=== PATIENT | male | born 1980 | race Caucasian/White ===

== ENCOUNTER 2019-12-01 18:30 | Emergency (ER) | payer MEDICARE, OTHER ==
[2019-12-01] MEDS ORDERED: Sodium Chloride 0.9% 1000 ML 1,000 ML IV STA (19:13)
[2019-12-01] MEDS ORDERED: Zofran 4 MG/2 ML VIAL IV ONE (19:13)
[2019-12-01] MEDS ORDERED: Sodium Chloride 0.9% 1000 ML 1,000 ML ONE (19:16)
[2019-12-01] MEDS ORDERED: Zofran 4 MG/2 ML VIAL ONE (19:16)
[2019-12-01 20:03] LABS: Absolute Neutrophil Ct (ANC) 6.24 (1.4-6.9); BASOPHIL % 0.2 % (0.0-0.4); Basophil (Absolute #) 0.02 (0-0.4); Eosinophil % 0.8 % (0.00-5.0); Eosinophil (Absolute #) 0.08 (0-0.5); Hematocrit 53.2 % (42-50); Hemoglobin 17.6 gm/dl (12.5-18.0); Lymphocyte (Absolute #) 2.27 (1.0-4.6); Lymphocytes % 23.6 % (24.0-44.0); Mean Cell Volume 90.5 fl (78-100); Mean Corpuscular Hemoglobin 29.9 pg (26-32); Mean Corpuscular Hgb Concent. 33.1 g/dl (32-36); Mean Platelet Volume 10.4 fl (7.5-11.0); Monocyte (Absolute #) 1.01 (0.0-1.3); Monocytes % 10.5 % (0.0-12.0); Neutrophil % 64.9 % (36.0-66.0); Platelet Count 265 K/mm3 (150-450); Red Blood Count 5.88 M/mm3 (4.1-5.6); Red Cell Distribution Width 13.2 % (11.5-14.0); White Blood Count 9.6 K/mm3 (4.0-10.5)
[2019-12-01 20:15] LABS: ALBUMIN 4.8 g/dL (3.5-5.0); ALKALINE PHOSPHATASE 82 U/L (38-126); ANION GAP 12.2 MEQ/L (5-15); BLOOD UREA NITROGEN 19 mg/dL (9-20); CHLORIDE 93 mmol/L (98-107); Calcium 9.6 mg/dL (8.4-10.2); Carbon Dioxide 35 mmol/L (22-30); Creatinine 1 0.96 mg/dL (0.66-1.25); Glucose 109 mg/dL (74-106); LIPASE 49 U/L (23-300); SGOT/AST 42 U/L (17-59); SGPT/ALT 50 U/L (0-50); SODIUM 136 mmol/L (137-145); Total Protein 8.2 g/dL (6.3-8.2)
[2019-12-01 21:22] LABS: Appearance SLIGHTLY CLOUDY (CLEAR); Bacteria FEW /HPF (NEGATIVE); Bilirubin NEGATIVE (NEGATIVE); Blood NEGATIVE Ery/ul (0-5); Glucose NEGATIVE (NEGATIVE); Hyaline Casts 0-2 /LPF (0-2); Ketones NEGATIVE (NEGATIVE); Leukocyte Esterase NEGATIVE (NEGATIVE); Mucus MANY /HPF (NEGATIVE); Nitrite NEGATIVE (NEGATIVE); Protein,Urine Dip >=500 (Negative); Specific Gravity 1.032 (1.005-1.025); Urobilinogen 4 mg/dL (0-1); WBC 26-50 /HPF (0-5)
[2019-12-01] MEDS ORDERED: ROCEPHIN 1 Gm-D5w 50 ml Bag** 1 G/50 ML IVPB IV STA (21:31)
[2019-12-01 21:34] LABS: Barbiturate,Urine NEGATIVE (NEGATIVE); Benzodiazepine,Urine NEGATIVE (NEGATIVE); Cocaine,Urine NEGATIVE (NEGATIVE); Methadone,Urine NEGATIVE (NEGATIVE); Opiate,Urine NEGATIVE (NEGATIVE); PCP,Urine NEGATIVE (NEGATIVE); THC,Urine NEGATIVE (NEGATIVE)
[2019-12-01] MEDS ORDERED: ROCEPHIN 1 Gm-D5w 50 ml Bag** 1 G/50 ML IVPB IV ONE (22:02)
[2019-12-01 22:05] LABS: Amphetamine,Urine POSITIVE (NEGATIVE)
--- NOTE | 2019-12-01 22:29 | XRAY ---
Indication: Emesis. Comparison: March 08, 2011. 2 view abdomen demonstrates nonspecific nonobstructed bowel gas pattern. Radiopacity throughout the colon presumed ingested medication, bismuth, or barium. Solid organs unremarkable. Osseous structures demonstrates new finding old right innominate bone fracture deformity with 2 intact orthopedic screws. Single PA chest again demonstrates normal heart, lungs, and bony thorax. Impression: Nonacute nonobstructed abdomen. Normal 1 view chest.
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
[2019-12-01 23:27] VITALS: BP 117/104; PULSE 92
[2019-12-01 23:36] VITALS: O2SAT 100
--- NOTE | 2019-12-02 07:11 | XRAY ---
Indication: Abdomen pain, vomiting, and diarrhea. Multiple contiguous axial images obtained through the abdomen and pelvis using 80 cc Isovue 370 contrast. Comparison: None Lung bases demonstrates minimal atelectasis/scarring. No infiltrate or effusion. Heart is not enlarged. Noncontrasted stomach and bowel loops appear nonobstructed. Appendix not identified. Radiopacity throughout the colon presumed ingested medication, dizziness, or barium. No free fluid/air. Remaining liver, gallbladder, pancreas, spleen, adrenal glands, kidneys, ureters, bladder, and aorta appear unremarkable. No pathological retroperitoneal lymphadenopathy. Osseous structures demonstrates old right innominate bone fracture deformity with 2 orthopedic screws. Also small multilevel thoracolumbar chest wall nodes and bilateral L5 spondylolysis with 1 mm spondylolisthesis. Impression: 1. Chronic bony findings. 2. Remaining CT abdomen/pelvis with contrast exam is negative. Comment: Preliminary interpretation was made by [facility]. No critical discrepancy.
== END 2019-12-01 23:23 | disposition home or self-care (01) ==
LOC: ED 18:30
DX: R10.84 Generalized abdominal pain (principal); R11.2 Nausea with vomiting, unspecified; N39.0 Urinary tract infection, site not specified; F19.10 Other psychoactive substance abuse, uncomplicated; R50.9 Fever, unspecified
CPT/HCPCS: 36000; 36415; 74022; 74177; 80053; 80307; 81001; 83690; 85025; 87086; 96360; 96365; 96374; 99284; J0696; J2405

== ENCOUNTER 2020-12-09 04:36 | Emergency (ER) | payer MEDICARE ==
[2020-12-09 04:57] VITALS: O2SAT 98
[2020-12-09] MEDS ORDERED: BABY ASPIRIN 81 MG CHEW PO ONE (05:06)
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
[2020-12-09 05:17] LABS: Absolute Neutrophil Ct (ANC) 9.28 (1.4-6.9); BASOPHIL % 0.2 % (0.0-0.4); Basophil (Absolute #) 0.02 (0-0.4); Eosinophil % 1.6 % (0.00-5.0); Eosinophil (Absolute #) 0.21 (0-0.5); Hemoglobin 14.2 gm/dl (12.5-18.0); Lymphocyte (Absolute #) 2.52 (1.0-4.6); Lymphocytes % 19.3 % (24.0-44.0); Mean Cell Volume 95.7 fl (78-100); Mean Corpuscular Hemoglobin 30.2 pg (26-32); Mean Corpuscular Hgb Concent. 31.6 g/dl (32-36); Mean Platelet Volume 10.3 fl (7.5-11.0); Monocyte (Absolute #) 1.04 (0.0-1.3); Neutrophil % 70.9 % (36.0-66.0); Platelet Count 242 K/mm3 (150-450); Red Cell Distribution Width 13.3 % (11.5-14.0); White Blood Count 13.1 K/mm3 (4.0-10.5)
[2020-12-09 05:24] LABS: INR 0.99 (0.8-3.0); PROTIME 11.7 SECONDS (9.4-12.5)
[2020-12-09 05:26] LABS: PTT 24.7 SECONDS (25.1-36.5)
[2020-12-09 05:41] LABS: ALKALINE PHOSPHATASE 51 U/L (38-126); AMYLASE 95 U/L (30-110); ANION GAP 6.5 MEQ/L (5-15); BLOOD UREA NITROGEN 16 mg/dL (9-20); CHLORIDE 105 mmol/L (98-107); Calcium 8.9 mg/dL (8.4-10.2); Carbon Dioxide 33 mmol/L (22-30); Creatinine 1 0.77 mg/dL (0.66-1.25); EST GLOMERULAR FILTRATION RATE > 60.0 ML/MIN; Glucose 163 mg/dL (74-106); LIPASE 128 U/L (23-300); NT PRO BNP 23.7 pg/mL (0-450); Potassium 4.4 mmol/L (3.5-5.1); SGOT/AST 32 U/L (17-59); SGPT/ALT 23 U/L (0-50); SODIUM 139 mmol/L (137-145); Total Protein 6.5 g/dL (6.3-8.2)
[2020-12-09] MEDS ORDERED: TORAdol 30 mg Injection IV ONE (05:51)
[2020-12-09] MEDS ORDERED: TORAdol 30 mg Injection ONE (05:53)
[2020-12-09 06:09] VITALS: BP 114/77; PULSE 86
--- NOTE | 2020-12-09 09:02 | XRAY ---
Indication: Chest pain. Comparison: April 28, 2015. Portable chest again demonstrates normal heart, lungs, and bony thorax.
== END 2020-12-09 06:19 | disposition home or self-care (01) ==
LOC: ED 04:36
DX: R07.89 Other chest pain (principal)
CPT/HCPCS: 36000; 36415; 71045; 80053; 82150; 83690; 83880; 84484; 85025; 85610; 85730; 93005; 96374; 99284; U0003; J1885; A9270-GY

== ENCOUNTER 2021-01-06 08:03 | Emergency (ER) | payer MEDICARE ==
[2021-01-06 08:13] VITALS: BP 140/90; PULSE 89; O2SAT 98
[2021-01-06] MEDS ORDERED: Cleocin Phosphate IV 600 MG/4 ML ONE (08:25)
[2021-01-06] MEDS ORDERED: Cleocin Phosphate IV 600 MG/4 ML IM SCH (08:30)
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
== END 2021-01-06 08:37 | disposition home or self-care (01) ==
LOC: ED 08:03
DX: L02.01 Cutaneous abscess of face (principal); T63.301A Toxic effect of unspecified spider venom, accidental (unintentional), initial encounter
CPT/HCPCS: 96372; 99283

== ENCOUNTER 2021-03-12 07:18 | Emergency (ER) | payer MEDICARE ==
[2021-03-12] MEDS ORDERED: Haldol 5 MG ONE (07:22)
[2021-03-12] MEDS ORDERED: Ativan 2 MG/1 ML VIAL ONE (07:22)
[2021-03-12] MEDS ORDERED: Ativan 2 MG/1 ML VIAL IV ONE (07:28)
[2021-03-12] MEDS ORDERED: Haldol 5 MG IV ONE (07:28)
[2021-03-12 07:49] LABS: Absolute Neutrophil Ct (ANC) 3.81 (1.4-6.9); BASOPHIL % 0.4 % (0.0-0.4); Basophil (Absolute #) 0.03 (0-0.4); Eosinophil % 1.1 % (0.00-5.0); Eosinophil (Absolute #) 0.09 (0-0.5); Hemoglobin 13.2 gm/dl (12.5-18.0); Lymphocyte (Absolute #) 3.21 (1.0-4.6); Lymphocytes % 38.7 % (24.0-44.0); Mean Cell Volume 93.8 fl (78-100); Mean Corpuscular Hemoglobin 29.5 pg (26-32); Mean Corpuscular Hgb Concent. 31.4 g/dl (32-36); Mean Platelet Volume 9.9 fl (7.5-11.0); Monocyte (Absolute #) 1.16 (0.0-1.3); Neutrophil % 45.8 % (36.0-66.0); Platelet Count 242 K/mm3 (150-450); Red Blood Count 4.48 M/mm3 (4.1-5.6); Red Cell Distribution Width 13.3 % (11.5-14.0); White Blood Count 8.3 K/mm3 (4.0-10.5)
[2021-03-12 08:30] LABS: ALBUMIN 4.2 g/dL (3.5-5.0); ALKALINE PHOSPHATASE 60 U/L (38-126); BLOOD UREA NITROGEN 15 mg/dL (9-20); CHLORIDE 104 mmol/L (98-107); Calcium 9.2 mg/dL (8.4-10.2); Carbon Dioxide 29 mmol/L (22-30); Creatinine 1 0.89 mg/dL (0.66-1.25); EST GLOMERULAR FILTRATION RATE > 60.0 ML/MIN; Glucose 92 mg/dL (74-106); SALICYLATE < 1.0 mg/dL (2-20); SGOT/AST 37 U/L (17-59); SGPT/ALT 24 U/L (0-50); Total Protein 6.3 g/dL (6.3-8.2)
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
[2021-03-12 08:32] LABS: ACETAMINOPHEN < 10 ug/ml (10-30); ETHYL ALCOHOL < 10 mg/dL (0-10)
[2021-03-12 08:34] LABS: Potassium 3.8 mmol/L (3.5-5.1); SODIUM 140 mmol/L (137-145)
--- NOTE | 2021-03-12 09:09 | XRAY ---
Indication: Foreign body. Comparison: None 3 view left wrist demonstrates normal bones, articulation, and soft tissues.
[2021-03-12 10:08] VITALS: BP 135/90
[2021-03-12 11:44] VITALS: PULSE 91
--- NOTE | 2021-03-12 12:24 | XRAY ---
Indication: Seizure. Multiple contiguous axial images obtained through the head without contrast. Comparison: None Normal appearing brain parenchyma, ventricles, and bony calvarium. Visualized paranasal sinuses and mastoid air cells are clear. Impression: Normal CT head without contrast exam.
[2021-03-12 13:12] VITALS: O2SAT 94
== END 2021-03-12 12:50 | disposition left against medical advice (07) ==
LOC: ED 07:18
DX: F23 Brief psychotic disorder (principal); R45.1 Restlessness and agitation; R44.2 Other hallucinations; X83.8XXA Intentional self-harm by other specified means, initial encounter; Z72.0 Tobacco use
CPT/HCPCS: 36415; 70450; 73110; 80053; 80307; 85025; 99284; G0480; J1630; J2060

== ENCOUNTER 2021-03-13 04:38 | Emergency (ER) | payer MEDICARE ==
[2021-03-13 04:55] VITALS: O2SAT 98
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
[2021-03-13 05:53] LABS: Absolute Neutrophil Ct (ANC) 3.18 (1.4-6.9); BASOPHIL % 0.5 % (0.0-0.4); Basophil (Absolute #) 0.03 (0-0.4); Eosinophil % 2.1 % (0.00-5.0); Eosinophil (Absolute #) 0.13 (0-0.5); Hematocrit 42.6 % (42-50); Hemoglobin 13.4 gm/dl (12.5-18.0); Lymphocyte (Absolute #) 1.96 (1.0-4.6); Lymphocytes % 32.2 % (24.0-44.0); Mean Cell Volume 95.1 fl (78-100); Mean Corpuscular Hemoglobin 29.9 pg (26-32); Mean Corpuscular Hgb Concent. 31.5 g/dl (32-36); Mean Platelet Volume 9.7 fl (7.5-11.0); Monocyte (Absolute #) 0.79 (0.0-1.3); Neutrophil % 52.2 % (36.0-66.0); Platelet Count 235 K/mm3 (150-450); Red Blood Count 4.48 M/mm3 (4.1-5.6); Red Cell Distribution Width 13.3 % (11.5-14.0); White Blood Count 6.1 K/mm3 (4.0-10.5)
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
[2021-03-13 06:06] LABS: ACETAMINOPHEN < 10 ug/ml (10-30); ALBUMIN 3.8 g/dL (3.5-5.0); ALKALINE PHOSPHATASE 48 U/L (38-126); ANION GAP 7.6 MEQ/L (5-15); BLOOD UREA NITROGEN 12 mg/dL (9-20); CHLORIDE 102 mmol/L (98-107); Calcium 8.8 mg/dL (8.4-10.2); Carbon Dioxide 32 mmol/L (22-30); Creatinine 1 0.75 mg/dL (0.66-1.25); EST GLOMERULAR FILTRATION RATE > 60.0 ML/MIN; ETHYL ALCOHOL < 10 mg/dL (0-10); Glucose 91 mg/dL (74-106); Potassium 3.9 mmol/L (3.5-5.1); SALICYLATE < 1.0 mg/dL (2-20); SGOT/AST 33 U/L (17-59); SGPT/ALT 23 U/L (0-50); SODIUM 137 mmol/L (137-145); Total Protein 5.8 g/dL (6.3-8.2)
[2021-03-13 07:29] VITALS: BP 116/75; PULSE 85
[2021-03-13 07:36] LABS: Amourphous Crystal FEW /HPF (NEGATIVE); Appearance SLIGHTLY CLOUDY (CLEAR); Bacteria RARE /HPF (NEGATIVE); Bilirubin NEGATIVE (NEGATIVE); Blood NEGATIVE Ery/ul (0-5); Glucose NEGATIVE (NEGATIVE); Ketones NEGATIVE (NEGATIVE); Leukocyte Esterase NEGATIVE (NEGATIVE); Nitrite NEGATIVE (NEGATIVE); Protein,Urine Dip NEGATIVE (Negative); Specific Gravity 1.004 (1.005-1.025); Urobilinogen NEGATIVE mg/dL (0-1); WBC 0-2 /HPF (0-5)
[2021-03-13 07:59] LABS: Amphetamine,Urine NEGATIVE (NEGATIVE); Barbiturate,Urine NEGATIVE (NEGATIVE); Benzodiazepine,Urine NEGATIVE (NEGATIVE); Cocaine,Urine NEGATIVE (NEGATIVE); Methadone,Urine NEGATIVE (NEGATIVE); Opiate,Urine NEGATIVE (NEGATIVE); PCP,Urine NEGATIVE (NEGATIVE); THC,Urine NEGATIVE (NEGATIVE)
== END 2021-03-13 09:36 | disposition home or self-care (01) ==
LOC: ED 04:38
DX: F23 Brief psychotic disorder (principal); R44.3 Hallucinations, unspecified; Z72.0 Tobacco use
CPT/HCPCS: 36415; 80053; 80307; 81001; 85025; 93005; 93041; 99284; G0480

== ENCOUNTER 2021-03-25 17:01 | Emergency (ER) | payer MEDICARE ==
[2021-03-25] MEDS ORDERED: Sodium Chloride 0.9% 1000 ML 1,000 ML IV SCH (17:15)
[2021-03-25 17:33] LABS: Absolute Neutrophil Ct (ANC) 5.41 (1.4-6.9); BASOPHIL % 0.2 % (0.0-0.4); Basophil (Absolute #) 0.02 (0-0.4); Eosinophil % 1.7 % (0.00-5.0); Eosinophil (Absolute #) 0.15 (0-0.5); Hemoglobin 13.6 gm/dl (12.5-18.0); Lymphocyte (Absolute #) 2.32 (1.0-4.6); Mean Cell Volume 94.7 fl (78-100); Mean Corpuscular Hgb Concent. 31.6 g/dl (32-36); Mean Platelet Volume 10.1 fl (7.5-11.0); Monocyte (Absolute #) 1.04 (0.0-1.3); Monocytes % 11.6 % (0.0-12.0); Neutrophil % 60.5 % (36.0-66.0); Platelet Count 249 K/mm3 (150-450); Red Blood Count 4.54 M/mm3 (4.1-5.6); Red Cell Distribution Width 13.4 % (11.5-14.0); White Blood Count 8.9 K/mm3 (4.0-10.5)
[2021-03-25 17:49] LABS: ALBUMIN 3.8 g/dL (3.5-5.0); ALKALINE PHOSPHATASE 59 U/L (38-126); ANION GAP 9.7 MEQ/L (5-15); BLOOD UREA NITROGEN 17 mg/dL (9-20); CHLORIDE 103 mmol/L (98-107); Calcium 8.7 mg/dL (8.4-10.2); Carbon Dioxide 28 mmol/L (22-30); Creatinine 1 0.83 mg/dL (0.66-1.25); EST GLOMERULAR FILTRATION RATE > 60.0 ML/MIN; ETHYL ALCOHOL < 10 mg/dL (0-10); Glucose 111 mg/dL (74-106); MAGNESIUM 2.2 mg/dL (1.6-2.3); Potassium 4.4 mmol/L (3.5-5.1); SGOT/AST 26 U/L (17-59); SGPT/ALT 22 U/L (0-50); SODIUM 136 mmol/L (137-145)
[2021-03-25] MEDS ORDERED: Sodium Chloride 0.9% 1000 ML 1,000 ML ONE (17:50)
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
[2021-03-25 21:12] VITALS: O2SAT 100
[2021-03-25 21:26] LABS: Amourphous Crystal MODERATE /HPF (NEGATIVE); Appearance CLOUDY (CLEAR); Bilirubin NEGATIVE (NEGATIVE); Blood NEGATIVE Ery/ul (0-5); Glucose NEGATIVE (NEGATIVE); Ketones NEGATIVE (NEGATIVE); Leukocyte Esterase NEGATIVE (NEGATIVE); Nitrite NEGATIVE (NEGATIVE); Protein,Urine Dip NEGATIVE (Negative); RBC 0-2 /HPF (0-2); Specific Gravity 1.012 (1.005-1.025); Urobilinogen NEGATIVE mg/dL (0-1)
[2021-03-25 21:27] LABS: WBC NONE SEEN /HPF (0-5)
[2021-03-25 21:35] LABS: Barbiturate,Urine NEGATIVE (NEGATIVE); Benzodiazepine,Urine NEGATIVE (NEGATIVE); Cocaine,Urine NEGATIVE (NEGATIVE); Methadone,Urine NEGATIVE (NEGATIVE); Opiate,Urine NEGATIVE (NEGATIVE); PCP,Urine NEGATIVE (NEGATIVE); THC,Urine NEGATIVE (NEGATIVE)
[2021-03-25 22:06] VITALS: BP 131/80; PULSE 92
[2021-03-25 22:17] LABS: Amphetamine,Urine POSITIVE (NEGATIVE)
--- NOTE | 2021-03-26 08:36 | XRAY ---
Indication: Seizure. No known injury. Multiple contiguous axial images obtained through the head without contrast. Comparison: March 12, 2021. Normal appearing brain parenchyma, ventricles, and bony calvarium. Visualized paranasal sinuses and mastoid air cells are clear. Impression: Continued normal CT head without contrast exam.
--- NOTE | 2021-03-26 08:38 | XRAY ---
Indication: Chest pain. Seizure. Comparison: December 09, 2020. Portable chest again demonstrates normal heart, lungs, and bony thorax with incidental prior left shoulder surgery.
== END 2021-03-25 22:10 | disposition home or self-care (01) ==
LOC: ED 17:01
DX: R56.9 Unspecified convulsions (principal); R06.02 Shortness of breath; Z72.0 Tobacco use
CPT/HCPCS: 36000; 36415; 70450; 71045; 80053; 80307; 81001; 83735; 84484; 85025; 85379; 93005; 93041; 94760; 99284; G0480

== ENCOUNTER 2021-04-18 22:08 | Emergency (ER) | payer MEDICARE ==
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
[2021-04-18 22:47] LABS: Absolute Neutrophil Ct (ANC) 3.21 (1.4-6.9); Basophil (Absolute #) 0.02 (0-0.4); Eosinophil (Absolute #) 0.11 (0-0.5); Hematocrit 42.9 % (42-50); Hemoglobin 13.8 gm/dl (12.5-18.0); Lymphocyte (Absolute #) 1.61 (1.0-4.6); Lymphocytes % 28.7 % (24.0-44.0); Mean Cell Volume 92.9 fl (78-100); Mean Corpuscular Hemoglobin 29.9 pg (26-32); Mean Corpuscular Hgb Concent. 32.2 g/dl (32-36); Mean Platelet Volume 9.7 fl (7.5-11.0); Monocyte (Absolute #) 0.66 (0.0-1.3); Monocytes % 11.8 % (0.0-12.0); Neutrophil % 57.1 % (36.0-66.0); Platelet Count 214 K/mm3 (150-450); Red Blood Count 4.62 M/mm3 (4.1-5.6); Red Cell Distribution Width 13.2 % (11.5-14.0); White Blood Count 5.6 K/mm3 (4.0-10.5)
[2021-04-18 23:03] LABS: ALBUMIN 4.4 g/dL (3.5-5.0); ALKALINE PHOSPHATASE 65 U/L (38-126); BLOOD UREA NITROGEN 5 mg/dL (9-20); CHLORIDE 103 mmol/L (98-107); Carbon Dioxide 29 mmol/L (22-30); Creatinine 1 0.78 mg/dL (0.66-1.25); EST GLOMERULAR FILTRATION RATE > 60.0 ML/MIN; ETHYL ALCOHOL < 10 mg/dL (0-10); Glucose 88 mg/dL (74-106); LIPASE 124 U/L (23-300); Potassium 4.3 mmol/L (3.5-5.1); SGOT/AST 36 U/L (17-59); SGPT/ALT 23 U/L (0-50); SODIUM 137 mmol/L (137-145)
[2021-04-18 23:17] VITALS: BP 121/93; PULSE 69
[2021-04-18 23:46] LABS: Amourphous Crystal MODERATE /HPF (NEGATIVE); Appearance CLOUDY (CLEAR); Bacteria NONE SEEN /HPF (NEGATIVE); Bilirubin NEGATIVE (NEGATIVE); Blood NEGATIVE Ery/ul (0-5); Epithelial Cells RARE /HPF (FEW); Glucose NEGATIVE (NEGATIVE); Ketones NEGATIVE (NEGATIVE); Leukocyte Esterase NEGATIVE (NEGATIVE); Nitrite NEGATIVE (NEGATIVE); Protein,Urine Dip NEGATIVE (Negative); RBC 0-2 /HPF (0-2); Specific Gravity 1.012 (1.005-1.025); Sperm PRESENT /HPF (NEGATIVE); Urobilinogen NEGATIVE mg/dL (0-1)
[2021-04-18 23:52] LABS: Barbiturate,Urine NEGATIVE (NEGATIVE); Benzodiazepine,Urine NEGATIVE (NEGATIVE); Cocaine,Urine NEGATIVE (NEGATIVE); Methadone,Urine NEGATIVE (NEGATIVE); Opiate,Urine NEGATIVE (NEGATIVE); PCP,Urine NEGATIVE (NEGATIVE); THC,Urine NEGATIVE (NEGATIVE)
[2021-04-18 23:56] VITALS: O2SAT 96
[2021-04-19 00:09] LABS: Amphetamine,Urine POSITIVE (NEGATIVE)
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
== END 2021-04-19 00:33 | disposition home or self-care (01) ==
LOC: ED 22:08
DX: S00.31XA Abrasion of nose, initial encounter (principal); V48.5XXA Car driver injured in noncollision transport accident in traffic accident, initial encounter; Z72.0 Tobacco use
CPT/HCPCS: 36000; 36415; 70450; 71045; 72125; 80053; 80307; 81001; 83690; 84484; 85025; 99285; G0480

== ENCOUNTER 2024-04-27 10:07 | Emergency (ER) | payer MEDICARE ==
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
[2024-04-27 10:18] VITALS: PULSE 83; TEMP 97.2
[2024-04-27] MEDS ORDERED: Sodium Chloride 0.9% 1000 ML 1,000 ML ONE (10:45)
[2024-04-27] MEDS ORDERED: Zofran 4 MG/2 ML VIAL ONE (10:45)
[2024-04-27] MEDS: Zofran 4 MG/2 ML VIAL IV ONE (10:46)
[2024-04-27] MEDS: Sodium Chloride 0.9% 1000 ML 1,000 ML IV STA (10:46)
[2024-04-27 10:58] LABS: Absolute Neutrophil Ct (ANC) 3.86 x10^3/uL (1.78-5.38); BASOPHIL % 0.5 % (0.2-1.2); Basophil (Absolute #) 0.03 x10^3/uL (0.01-0.08); Eosinophil % 1.3 % (0.8-7.0); Eosinophil (Absolute #) 0.08 x10^3/uL (0.04-0.54); Hematocrit 44.1 % (40.1-51.0); Hemoglobin 14.6 g/dL (13.7-17.5); IMMATURE GRAN # 0.02 x10^3u/L (0.001-0.031); IMMATURE GRAN % 0.3 % (0.001-0.429); Lymphocyte (Absolute #) 1.33 x10^3/uL (1.32-3.57); Mean Cell Volume 91.3 fL (79.0-92.2); Mean Corpuscular Hemoglobin 30.2 pg (25.7-32.2); Mean Corpuscular Hgb Concent. 33.1 g/dL (32.3-36.5); Mean Platelet Volume 9.3 fL (9.4-12.4); Monocyte (Absolute #) 0.73 x10^3/uL (0.30-0.82); Monocytes % 12.1 % (5.3-12.2); Neutrophil % 63.8 % (34.0-67.9); Platelet Count 264 x10^3/uL (163-337); Red Blood Count 4.83 x10^6/uL (4.63-6.08); Red Cell Distribution Width 12.8 % (11.6-14.4); White Blood Count 6.1 x10^3/uL (4.23-9.07)
[2024-04-27 11:15] LABS: ALBUMIN 4.5 g/dL (3.5-5.0); ANION GAP 13.7 MEQ/L (5-15); BILIRUBIN,TOTAL 1.4 mg/dL (0.2-1.3); Calcium 9.2 mg/dL (8.4-10.2); Creatinine 1 0.81 mg/dL (0.66-1.25); EST GLOMERULAR FILTRATION RATE 110.8 ML/MIN; Potassium 4.6 mmol/L (3.5-5.1); Total Protein 7.1 g/dL (6.3-8.2)
[2024-04-27 13:05] VITALS: O2SAT 97
[2024-04-27 13:40] LABS: Appearance Clear (Clear); Bacteria None Seen /HPF (None Seen); Bilirubin Negative (Negative); Blood Negative (Negative); Epithelial Cells None Seen /HPF (None Seen); Glucose, Urine Negative (Negative); Hyaline Casts NONE SEEN /LPF (0-2); Ketones 80 (Negative); Leukocyte Esterase Negative (Negative); Nitrite Negative (Negative); Protein,Urine Dip Negative (Negative); RBC 0-2 /HPF (0-5); Specific Gravity >=1.030 (1.005-1.030); WBC 0-2 /HPF (0-5)
--- NOTE | 2024-04-27 14:09 | XRAY ---
Indication: Headache. Chest pain. Elevated d-dimer. Abdominal pain. Multiple contiguous axial images obtained through the head without contrast. Comparison: April 18, 2021 Normal appearing brain parenchyma, ventricles, and bony calvarium. Visualized paranasal sinuses and mastoid air cells are clear. Impression: Again normal CT head without contrast exam.
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
[2024-04-27] MEDS ORDERED: Sodium Chloride 0.9% 500 ML 500 ML IV ONE (14:23)
[2024-04-27] MEDS: Sodium Chloride 0.9% 500 ML 500 ML IV ONE (14:36)
[2024-04-27 15:47] VITALS: BP 125/71
== END 2024-04-27 15:47 | disposition home or self-care (01) ==
LOC: ED 10:07
DX: R11.2 Nausea with vomiting, unspecified (principal); R07.9 Chest pain, unspecified; G40.909 Epilepsy, unspecified, not intractable, without status epilepticus; R06.02 Shortness of breath; Z72.0 Tobacco use
CPT/HCPCS: 36415; 70450; 71260; 74176; 80053; 81001; 82150; 83605; 83690; 84484; 85025; 85379; 93005; 96374; 99284; 99285; J2405

== ENCOUNTER 2024-05-21 05:58 | Day surgery (SDC) | payer MEDICARE ==
[2024-05-21] MEDS ORDERED: Lactated Ringers 1,000 ML IV ONE ×2 (06:55→08:16)
[2024-05-21] MEDS: Lactated Ringers 1,000 ML IV SCH (06:58)
[2024-05-21 07:14] LABS: Absolute Neutrophil Ct (ANC) 3.59 x10^3/uL (1.78-5.38); BASOPHIL % 0.8 % (0.2-1.2); Basophil (Absolute #) 0.06 x10^3/uL (0.01-0.08); Eosinophil % 2.6 % (0.8-7.0); Hematocrit 44.6 % (40.1-51.0); Hemoglobin 14.7 g/dL (13.7-17.5); IMMATURE GRAN # 0.04 x10^3u/L (0.001-0.031); IMMATURE GRAN % 0.5 % (0.001-0.429); Lymphocyte (Absolute #) 2.92 x10^3/uL (1.32-3.57); Lymphocytes % 38.5 % (21.8-53.1); Monocyte (Absolute #) 0.77 x10^3/uL (0.30-0.82); Monocytes % 10.2 % (5.3-12.2); Neutrophil % 47.4 % (34.0-67.9); Platelet Count 272 x10^3/uL (163-337); Red Cell Distribution Width 12.8 % (11.6-14.4); White Blood Count 7.6 x10^3/uL (4.23-9.07)
[2024-05-21 07:31] LABS: ANION GAP 11.2 MEQ/L (5-15); Calcium 9.1 mg/dL (8.4-10.2); Creatinine 1 0.7 mg/dL (0.66-1.25); EST GLOMERULAR FILTRATION RATE 115.8 ML/MIN; Potassium 4.2 mmol/L (3.5-5.1)
[2024-05-21] MEDS ORDERED: propofoL IV ONE (08:12)
[2024-05-21 09:27] VITALS: RESP 16; O2SAT 99
[2024-05-21 09:42] VITALS: BP 111/80; PULSE 70; TEMP 97.5
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
== END 2024-05-21 09:49 | disposition home or self-care (01) ==
LOC: SDC 05:58
PROVIDERS: ATTEND Family Medicine
DX: Z12.11 Encounter for screening for malignant neoplasm of colon (principal); Z87.19 Personal history of other diseases of the digestive system; Z90.49 Acquired absence of other specified parts of digestive tract; D12.3 Benign neoplasm of transverse colon
CPT/HCPCS: 36415; 80048; 85025; 93005; J2704